=== PATIENT | male | born 1975 | race Caucasian/White ===

== ENCOUNTER → 2018-05-01 | Outpatient (CLI) | payer BC, OTHER ==
--- NOTE | 2018-05-01 08:52 | RAD ---
EXAM: Abdomen sonogram. HISTORY: Palpable lump. TECHNIQUE: Sonographic imaging of the ventral abdominal wall at site of palpable concern was performed. COMPARISON: None. FINDINGS: There is a fat-containing supraumbilical hernia. The hernia defect measures 1.0 cm. The hernia sac measures 4.4 cm. IMPRESSION: Fat-containing subumbilical hernia at the site of palpable concern. Electronically signed by: Antonietta Rush MD (05/01/2018 8:49 AM) [place] [id number]
== END | disposition home or self-care (01) ==
LOC: US 07:45
PROVIDERS: ATTEND Specialist
DX: K42.9 Umbilical hernia without obstruction or gangrene (principal)
CPT/HCPCS: 76705

== ENCOUNTER → 2019-08-23 | Outpatient (CLI) | payer BC ==
--- NOTE | 2019-08-23 11:19 | RAD ---
Thyroid ultrasound without comparison for thyroid nodule. TECHNIQUE AND FINDINGS: Real-time grayscale and color Doppler evaluation of the thyroid gland is performed. The right lobe of the thyroid gland measures 5.2 x 1.8 x 1.5 cm and the left measures 5.5 x 1.8 x 1.5 cm. There is normal color flow in both glands. Echotexture is homogeneous. In the midportion of the right thyroid gland there is a heterogeneous mixed cystic and solid nodule measuring 1.1 x 0.9 x 0.9 cm, with indiscernible posterior margins. This nodule is taller than wide. No punctate calcifications. The isthmus is notable for 2 small benign-appearing heterogeneous nodules, one measuring 5 mm and one measuring 3 mm. The left lobe of thyroid also contains 2 small benign-appearing nodules, one measuring 5 mm in the mid gland contains coarse central calcification, and the other measuring 3 mm in the inferior gland. No adenopathy is identified. IMPRESSION: 1. Multinodular thyroid as described. The dominant nodule on the right does demonstrate equivocal features including being taller than wide, and having an indistinct posterior margin. Consider FNA. Electronically signed by: Fredo Tatum MD (08/23/2019 11:17 AM) [id number]
== END | disposition home or self-care (01) ==
LOC: US 08:11
PROVIDERS: ATTEND Specialist
DX: E04.2 Nontoxic multinodular goiter (principal)
CPT/HCPCS: 76536